=== PATIENT | male | born 1965 | race Caucasian/White ===

== ENCOUNTER 2018-02-19 15:57 | Emergency (ER) | payer SELFPAY ==
[~2018-02-19 15:57] MED LIST: ASPI81TA15 PO; CEPH500T7 PO; PHEN200T32 PO; SULF-198 PO
--- NOTE | 2018-02-19 16:08 | ER Report ---
History and Physical Time Seen By MD: 16:08 HPI/ROS CHIEF COMPLAINT: Abdominal pain HISTORY OF PRESENT ILLNESS: 52-year-old male patient presents to emergency room with complaint of abdominal pain. Patient states he's been having abdominal pain intermittently for the last several days. He states that it worsened significantly today at 9:30. Patient states he was at work and felt like his hernia started to have bowel slipped through the. He states that when that happened he had pain across the left side of the abdomen. He states he did have a bout of nausea and vomiting. He states that he was unable to continue work and left to go home. He states he got home he tried to drink some more issues which resulted in him vomiting again. Patient states that he tried taking a bath at that time was able to reduce his hernia. Patient states he feels as if it pulled something along the left side of the abdomen and came into to get that evaluat ed. Patient states this pain is fairly significant. He states he has not had anything to eat or drink since he vomited about 10:30. REVIEW OF SYSTEMS: Respiratory: No cough, no dyspnea. Cardiovascular: No chest pain, no palpitations. Gastrointestinal: As noted above Musculoskeletal: No back pain. Allergies: Coded Allergies: famotidine (Verified Allergy, Severe, psychosis, 02/19/18) alprazolam (Verified Allergy, Unknown, "Seizures", 02/19/18) morphine (Verified Allergy, Unknown, "Migraines, seizures", 02/19/18) Home Meds Active Scripts Ketorolac Tromethamine (KETOROLAC TROMETHAMINE) 10 Mg Tab, 10 MG PO Q6H, #20 TAB Prov:MODESTA BUCHANAN [facility] 02/19/18 Hydromorphone Hcl (DILAUDID) 2 Mg Tablet, 2 MG PO Q4-6H PRN for PAIN, #8 TAB Prov:MODESTA BUCHANAN [facility] 02/19/18 Cephalexin 500 Mg Tab (KEFLEX 500 MG TAB) 500 Mg Tablet, 500 MG PO Q6H, #28 TAB Prov:MODESTA BUCHANAN [facility] 02/19/18 Past Medical/Surgical History Patient has a past medical history of kidney stones, A5 chambered heart, hypertension, reflux, fibromyalgia. Patient has surgical history of right knee surgery, repair of a testicular torsion. Patient has a family medical history of cancer, stroke. Reviewed Nurses Notes: Yes Hx Smoking: No Smoking Status: Never Smoker Exposure to Second Hand Smoke?: No Constitutional Vital Sign - Last 24 Hours 02/19/18 02/19/18 02/19/18 02/19/18 16:06 16:09 16:30 17:30 Temp 98.2 Pulse 117 99 87 Resp 16 B/P (MAP) 145/91 145/91 (109) 122/96 (105) 124/95 (105) Pulse Ox 93 94 93 O2 Delivery Room Air Physical Exam General Appearance: The patient is alert, has no immediate need for airway protection and no current signs of toxicity. Respiratory: Chest is non tender, lungs are clear to auscultation. Cardiac: regular rate and rhythm Gastrointestinal: Abdomen is soft and tender along the left side of the abdomen, especially worse on the left side just under the ribs., no masses, bowel sounds normal. Musculoskeletal: Neck: Neck is supple and non tender. Extremities have full range of motion and are non tender. Skin: No rashes or lesions. DIFFERENTIAL DIAGNOSIS: After history and physical exam differential diagnosis was considered for abdominal pain including but not limited to appendicitis, cholecystitis, gastritis and urinary tract infection. Included differential is a incarcerated hernia. Medical Decision Making Data Points Result Diagram: 02/19/18 1612 02/19/18 1612 Laboratory Hematology Test 02/19/18 16:12 02/19/18 17:58 Red Blood Count 5.67 M/uL (4.00-5.60) Mean Corpuscular Volume 89.4 fL (80.0-96.0) Mean Corpuscular Hemoglobin 31.5 pg (26.0-33.0) Mean Corpuscular Hemoglobin Concent 35.3 g/dL (32.0-36.0) Red Cell Distribution Width 12.4 % (11.5-14.5) Mean Platelet Volume 8.6 fL (7.2-11.1) Neutrophils (%) (Auto) 79.2 % (39.4-72.5) Lymphocytes (%) (Auto) 13.7 % (17.6-49.6) Monocytes (%) (Auto) 6.7 % (4.1-12.4) Eosinophils (%) (Auto) 0.1 % (0.4-6.7) Basophils (%) (Auto) 0.3 % (0.3-1.4) Nucleated RBC Relative Count (auto) 0.1 /100WBC Neutrophils # (Auto) 11.4 K/uL (2.0-7.4) Lymphocytes # (Auto) 2.0 K/uL (1.3-3.6) Monocytes # (Auto) 1.0 K/uL (0.3-1.0) Eosinophils # (Auto) 0.0 K/uL (0.0-0.5) Basophils # (Auto) 0.0 K/uL (0.0-0.1) Nucleated RBC Absolute Count (auto) 0.01 K/uL Sodium Level 135 mmol/L (137-145) Potassium Level 4.2 mmol/L (3.5-5.0) Chloride Level 100 mmol/L (98-107) Carbon Dioxide Level 22 mmol/L (22-30) Blood Urea Nitrogen 19 mg/dl (9-21) Creatinine 1.50 mg/dl (0.66-1.25) Glomerular Filtration Rate Calc 49.5 Random Glucose 136 mg/dl (75-110) Calcium Level 9.8 mg/dl (8.4-10.2) Total Bilirubin 0.7 mg/dl (0.2-1.3) Aspartate Amino Transf (AST/SGOT) 22 U/L (0-35) Alanine Aminotransferase (ALT/SGPT) 31 U/L (0-56) Alkaline Phosphatase 76 U/L (0-126) Total Protein 7.7 g/dl (6.3-8.2) Albumin 4.6 g/dl (3.5-5.0) Urine Color Yellow Urine Clarity Clear Urine pH 5.0 pH (4.8-9.5) Urine Specific Clune 1.056 Urine Protein Negative mg/dL (NEGATIVE) Urine Glucose (UA) Negative mg/dL (NEGATIVE) Urine Ketones Negative mg/dL (NEGATIVE) Urine Blood Moderate (NEGATIVE) Urine Nitrite Negative (NEGATIVE) Urine Bilirubin Negative (NEGATIVE) Urine Urobilinogen Negative mg/dL (0.2-1.9) Urine Leukocyte Esterase Negative (NEGATIVE) Urine RBC 27 /HPF (0-2/HPF) Urine WBC 1 /HPF (0-5/HPF) Urine Squamous Epithelial Cells Many /LPF (</=FEW) Urine Bacteria Negative /HPF (NONE-FEW) Urine Mucus None /HPF (NONE-FEW) Chemistry Test 02/19/18 16:12 02/19/18 17:58 White Blood Count 14.4 k/uL (4.5-11.0) Red Blood Count 5.67 M/uL (4.00-5.60) Hemoglobin 17.9 g/dL (14.0-18.0) Hematocrit 50.7 % (42.0-52.0) Mean Corpuscular Volume 89.4 fL (80.0-96.0) Mean Corpuscular Hemoglobin 31.5 pg (26.0-33.0) Mean Corpuscular Hemoglobin Concent 35.3 g/dL (32.0-36.0) Red Cell Distribution Width 12.4 % (11.5-14.5) Platelet Count 232 K/uL (150-450) Mean Platelet Volume 8.6 fL (7.2-11.1) Neutrophils (%) (Auto) 79.2 % (39.4-72.5) Lymphocytes (%) (Auto) 13.7 % (17.6-49.6) Monocytes (%) (Auto) 6.7 % (4.1-12.4) Eosinophils (%) (Auto) 0.1 % (0.4-6.7) Basophils (%) (Auto) 0.3 % (0.3-1.4) Nucleated RBC Relative Count (auto) 0.1 /100WBC Neutrophils # (Auto) 11.4 K/uL (2.0-7.4) Lymphocytes # (Auto) 2.0 K/uL (1.3-3.6) Monocytes # (Auto) 1.0 K/uL (0.3-1.0) Eosinophils # (Auto) 0.0 K/uL (0.0-0.5) Basophils # (Auto) 0.0 K/uL (0.0-0.1) Nucleated RBC Absolute Count (auto) 0.01 K/uL Glomerular Filtration Rate Calc 49.5 Calcium Level 9.8 mg/dl (8.4-10.2) Total Bilirubin 0.7 mg/dl (0.2-1.3) Aspartate Amino Transf (AST/SGOT) 22 U/L (0-35) Alanine Aminotransferase (ALT/SGPT) 31 U/L (0-56) Alkaline Phosphatase 76 U/L (0-126) Total Protein 7.7 g/dl (6.3-8.2) Albumin 4.6 g/dl (3.5-5.0) Urine Color Yellow Urine Clarity Clear Urine pH 5.0 pH (4.8-9.5) Urine Specific Clune 1.056 Urine Protein Negative mg/dL (NEGATIVE) Urine Glucose (UA) Negative mg/dL (NEGATIVE) Urine Ketones Negative mg/dL (NEGATIVE) Urine Blood Moderate (NEGATIVE) Urine Nitrite Negative (NEGATIVE) Urine Bilirubin Negative (NEGATIVE) Urine Urobilinogen Negative mg/dL (0.2-1.9) Urine Leukocyte Esterase Negative (NEGATIVE) Urine RBC 27 /HPF (0-2/HPF) Urine WBC 1 /HPF (0-5/HPF) Urine Squamous Epithelial Cells Many /LPF (</=FEW) Urine Bacteria Negative /HPF (NONE-FEW) Urine Mucus None /HPF (NONE-FEW) Urinalysis Test 02/19/18 17:58 Urine Color Yellow Urine Clarity Clear Urine pH 5.0 pH (4.8-9.5) Urine Specific Clune 1.056 Urine Protein Negative mg/dL (NEGATIVE) Urine Glucose (UA) Negative mg/dL (NEGATIVE) Urine Ketones Negative mg/dL (NEGATIVE) Urine Blood Moderate (NEGATIVE) Urine Nitrite Negative (NEGATIVE) Urine Bilirubin Negative (NEGATIVE) Urine Urobilinogen Negative mg/dL (0.2-1.9) Urine Leukocyte Esterase Negative (NEGATIVE) Urine RBC 27 /HPF (0-2/HPF) Urine WBC 1 /HPF (0-5/HPF) Urine Squamous Epithelial Cells Many /LPF (</=FEW) Urine Bacteria Negative /HPF (NONE-FEW) Urine Mucus None /HPF (NONE-FEW) EKG/Imaging Imaging ABDOMEN/PELVIS WITH CONTRAST HISTORY: abdominal pain, hernia TECHNIQUE: Following administration of IV contrast contiguous axial images acquired through the abdomen/pelvis. Coronal and sagittal reformatting also performed. Dose Lowering Technique One of the following dose optimization techniques was utilized in the performance of this exam: Automated exposure control; adjustment of the mA and/or kV according to the patient's size; or use of an iterative reconstruct ion technique. Specific details can be referenced in the facility's radiology CT exam operational policy. CONTRAST: 75 mL Isovue-370 COMPARISON: None. FINDINGS: Visualized lung bases: Negative. Hepatobiliary: Negative. Spleen: Negative. Adrenals: Negative. Pancreas: Negative. Kidneys ureters or bladder: Several tiny subcentimeter hypodensities in the right kidney may represent cysts although are too small to characterize There is moderate perinephric stranding on the left and a moderate to severe left hydronephrosis and hydroureter secondary to a 6 x 4 mm stone in the mid left ureter. There is also a diminished nephrogram on the left consistent with partial obstruction. There Is mild urothelial enhancement involving the proximal left ureter which may indicate urinary tract infection. No other calculi are identified in the renal collecting systems bilaterally. Genitalia: Prostate gland is mildly heterogeneous and contains coarse calcifications GI: There is mild diverticulosis of the left-sided colon although no CT evidence of acute diverticulitis. The appendix is visualized does not appear inflamed Vessels/spaces/nodes: Negative. Bones/soft tissues: There is a small umbilical hernia containing fat. There are moderate spondylotic changes L5-S1 Additional findings: None pertinent. IMPRESSION: There is moderate perinephric stranding on the left with a moderate to severe left hydronephrosis and hydroureter secondary to a 6 x 4 mm stone in the mid left ureter. There is also mild urothelial enhancement involving the proximal left ureter which may indicate a urinary tract infection as well. Additional chronic or nonemergent findings as described Report Dictated By: Lindsay Burgos MD at 02/19/2018 5:12 PM Report E-Signed By: Lindsay Burgos MD at 02/19/2018 5:21 PM ED Course/Re-evaluation ED Course Patient was admitted to the exam room, history and physical were obtained. Di fferential diagnoses were considered. On examination lungs are clear, heart is regular, abdomen is soft and tender especially on the left upper and lower quadrants. Patient seemed to have pain that was worse at the left upper quadrant just under the ribs. A CBC, CMP were done. Patient did have a white count of 14,000 with a left shift, patient had an elevated creatinine to 1.5. His last creatinine was in 2011 and I'm unsure if this is new (development of a chronic illness. A CT scan of the abdomen and pelvis was done. The results showed patient does have a 6 mm x 4 mm stone in the left mid ureter. I discussed the findings with the patient and his . I did discuss the case with Dr. Cruz, urologist. He felt the patient should probably follow-up with him to have a lithotripsy. He stated that could be done on . Dr. Cruz requested that I give the patient his cell phone number. I discussed this with patient and he verbalized understanding and agreement. We will go ahead and treat him with some pain medication, some antibiotics. Patient did receive 1 g of Rocephin IV here in the emergency room. Patient and his verbalized understanding and agreement. Patient also received morphine for pain as well as Toradol. Patient seemed to have more comfort as result of the Toradol. Prescription was sent in for Toradol, however the patient stated when he got there the only one he wanted to warp picker the pain medication and not the antibiotic nor the anti-inflammatory. I felt the patient should probably warp picker all 3, however most important were the antibiotics with pain medication being secondary. Pharmacist verbalized understanding and agreement. Decision to Disposition Date: Feb 19, 2018 Decision to Disposition Time: 19:22 Depart Departure Latest Vital Signs Vital Signs Date Time Temp Pulse Resp B/P (MAP) Pulse Ox O2 Delivery O2 Flow Rate FiO2 02/19/18 17:30 87 124/95 (105) 93 02/19/18 16:06 98.2 16 Room Air Impression: Primary Impression: Kidney stone on left side Condition: Improved Disposition: HOME OR SELF-CARE Referrals: FERNANDO CRUZ MD New Scripts Ketorolac Tromethamine (KETOROLAC TROMETHAMINE) 10 Mg Tab 10 MG PO Q6H, #20 TAB Prov: MODESTA BUCHANAN 02/19/18 Hydromorphone Hcl (DILAUDID) 2 Mg Tablet 2 MG PO Q4-6H PRN for PAIN, #8 TAB Prov: MODESTA BUCHANAN 02/19/18 Cephalexin 500 Mg Tab (KEFLEX 500 MG TAB) 500 Mg Tablet 500 MG PO Q6H, #28 TAB Prov: MODESTA BUCHANAN 02/19/18 Patient Instructions: Kidney Stones (ED) Additional Instructions: Increase fluid intake. Get plenty of rest. Limit activity by pain. Follow up with Dr. Cruz on to break up the stone. He will call you tomorrow to make arrangements for the lithotripsy. His Cell phone number is: . Take your medications as prescribed. MODESTA BUCHANAN Feb 19, 2018 16:08
[2018-02-19] MEDS ORDERED: NS(*) 0.9% 1000 ML BAG 1,000 ML IV ONE (16:27)
[2018-02-19] MEDS ORDERED: ONDANSETRON 4 MG/2 ML VIAL IVP ONE (16:30)
[2018-02-19] MEDS ORDERED: fentaNYL CITR 100 MCG/2 ML AMP IVP ONE (16:30)
[2018-02-19 16:33] LABS: PLATELET COUNT, AUTOMATED 232 K/uL (150-450)
[2018-02-19] MEDS ORDERED: IOPAMIDOL 76% 75 ML INFUS BTL 75 ML ONE (16:44)
--- NOTE | 2018-02-19 17:25 | RADIOLOGY IMAGING REPORT ---
FACILITY: [facility] PATIENT NAME: Tunde Alvarez : 1965 MR: [id number] V: [id number] EXAM DATE: ORDERING PHYSICIAN: MODESTA BUCHANAN TECHNOLOGIST: Location: [facility] Patient: Tunde Alvarez : 1965 Visit/Account:[id number] Date of Sevice: 02/19/2018 ABDOMEN/PELVIS WITH CONTRAST HISTORY: abdominal pain, hernia TECHNIQUE: Following administration of IV contrast contiguous axial images acquired through the abdom en/pelvis. Coronal and sagittal reformatting also performed. Dose Lowering Technique One of the following dose optimization techniques was utilized in the performance of this exam: Autom ated exposure control; adjustment of the mA and/or kV according to the patient's size; or use of an i terative reconstruction technique. Specific details can be referenced in the facility's radiology C T exam operational policy. CONTRAST: 75 mL Isovue-370 COMPARISON: None. FINDINGS: Visualized lung bases: Negative. Hepatobiliary: Negative. Spleen: Negative. Adrenals: Negative. Pancreas: Negative. Kidneys ureters or bladder: Several tiny subcentimeter hypodensities in the right kidney may represen t cysts although are too small to characterize There is moderate perinephric stranding on the left and a moderate to severe left hydronephrosis and hydroureter secondary to a 6 x 4 mm stone in the mid left ureter. There is also a diminished nephrog mary on the left consistent with partial obstruction. There Is mild urothelial enhancement involving the proximal left ureter which may indicate urinary tract infection. No other calculi are identified in the renal collecting systems bilaterally. Genitalia: Prostate gland is mildly heterogeneous and contains coarse calcifications GI: There is mild diverticulosis of the left-sided colon although no CT evidence of acute diverticul itis. The appendix is visualized does not appear inflamed Vessels/spaces/nodes: Negative. Bones/soft tissues: There is a small umbilical hernia containing fat. There are moderate spondyloti c changes L5-S1 Additional findings: None pertinent. IMPRESSION: There is moderate perinephric stranding on the left with a moderate to severe left hydronephrosis and hydroureter secondary to a 6 x 4 mm stone in the mid left ureter. There is also mild urothelial enh ancement involving the proximal left ureter which may indicate a urinary tract infection as well. Additional chronic or nonemergent findings as described Report Dictated By: Lindsay Burgos MD at 02/19/2018 5:12 PM Report E-Signed By: Lindsay Burgos MD at 02/19/2018 5:21 PM JULISSAN:ZAKI
[2018-02-19 17:30] VITALS: BP 124/95
[2018-02-19] MEDS ORDERED: KETOROLAC 15 MG/ML VIAL IVP ONE (17:45)
[2018-02-19] MEDS ORDERED: cefTRIAXone(*) 1 GM VIAL 1 GM in NS(*) 0.9% 100 ML ADDVANT BAG 100 ML IVPB ONE (18:40)
[2018-02-19] MEDS ORDERED: KET10 PO (19:13)
[2018-02-19] MEDS ORDERED: CEPH500T7 PO (19:13)
[2018-02-19] MEDS ORDERED: HYDR2TAB74 PO (19:13)
== END 2018-02-19 20:12 | disposition home or self-care (01) ==
LOC: ER 16:10
DX: N20.0 Calculus of kidney (principal); N13.30 Unspecified hydronephrosis; N13.4 Hydroureter
CPT/HCPCS: 81001; 85025; 96361; 96365; 96375; 99284; J0696; J1885; J2405; J3010; J7030; J7050; Q9967; 74177; 82040; 82247; 82310; 82374; 82435; 82565; 82947; 84075; 84132; 84155; 84295; 84450; 84460; 84520

== ENCOUNTER 2018-02-21 00:18 | Day surgery (SDC) | payer SELFPAY ==
[~2018-02-21] VITALS: Ht 157.5 cm; Wt 62.6 kg
[~2018-02-21 00:18] MED LIST changes: +HYDR2TAB74 PO; +KET10 PO
[2018-02-21] MEDS ORDERED: cefTRIAXone(*) 1 GM VIAL 1 GM in NS(*) 0.9% 100 ML ADDVANT BAG 100 ML IVPB ONE (11:15)
[2018-02-21 11:42] VITALS: BP 149/104
[2018-02-21] MEDS ORDERED: LIDOCAINE/SOD BICARB 8.4% SYR ID ONE (11:45)
[2018-02-21] MEDS ORDERED: NORMOSOL R SOLN(*) 1000 ML BAG 1,000 ML IV PRN (11:45)
[2018-02-21] MEDS ORDERED: PROPOFOL EMUL(*) 10MG/ML 20 ML 20 ML ONE (12:25)
[2018-02-21] MEDS ORDERED: ONDANSETRON 4 MG/2 ML VIAL ONE ×2 (12:25→15:58)
[2018-02-21] MEDS ORDERED: fentaNYL CITR 100 MCG/2 ML AMP ONE ×2 (12:25→16:04)
[2018-02-21] MEDS ORDERED: LIDOCAINE MPF 1% 5 ML VIAL ONE (12:25)
[2018-02-21] MEDS ORDERED: DEXAMETHASONE SOD 4 MG/ML VIAL ONE (12:25)
[2018-02-21] MEDS ORDERED: KETAMINE HCL 200 MG/20 ML MDV ONE (12:27)
[2018-02-21] MEDS ORDERED: IOPAMIDOL-200 50 ML VIAL IS ONE (13:33)
[2018-02-21] MEDS ORDERED: MIDAZOLAM 2 MG/2 ML VIAL IVP PRN (13:45)
--- NOTE | 2018-02-21 14:00 | RADIOLOGY IMAGING REPORT ---
FACILITY: [facility] PATIENT NAME: Tunde Alvarez : 1965 MR: [id number] V: [id number] EXAM DATE: ORDERING PHYSICIAN: FERNANDO CRUZ TECHNOLOGIST: Location: [facility] Patient: Tunde Alvarez : 1965 Visit/Account:[id number] Date of Sevice: 02/21/2018 Exam type: KUB SINGLE VIEW ABDOMEN History: KIDNEY STONES Comparison: CT abdomen and pelvis February 19, 2018. Findings: Bowel gas pattern is nonspecific. Ovoid calcification projects over the left transverse processes of L4 likely representing the mid left ureteral calculus as seen on the recent CT scan. No other calcu li project over the renal shadows. IMPRESSION: 1. Ovoid calcification projects of the left transverse process of L4 likely representing the mid lef t ureteral calculus as seen on the recent CT Report Dictated By: Lindsay Burgos MD at 02/21/2018 1:55 PM Report E-Signed By: Lindsay Burgos MD at 02/21/2018 1:57 PM JULISSAN:ZAKI
[2018-02-21] MEDS ORDERED: LIDOCAINE MPF 4% 200MG/5ML AMP ONE (14:13)
--- NOTE | 2018-02-21 15:43 | RADIOLOGY IMAGING REPORT ---
FACILITY: [facility] PATIENT NAME: Tunde Alvarez : 1965 MR: [id number] V: [id number] EXAM DATE: ORDERING PHYSICIAN: FERNANDO CRUZ TECHNOLOGIST: Location: [facility] [place] Patient: Tunde Alvarez : 1965 Visit/Account:[id number] Date of Sevice: 02/21/2018 Exam type: C-ARM FLUORO 1 HR History: LEFT KIDNEY STONES AND STENT PLACEMENT Comparison: CT and pelvis February 19, 2018. Findings: Four intraoperative some spot views over the abdomen pelvis were submitted. The prostate be time was 0.04 minutes. The fluoroscopy dose was 2.2 mgray. 4. Images demonstrate placement of a left ureteral stent which appears to been good position on the provided images. Cystoscope projects over the bladder IMPRESSION: 1. As above Report Dictated By: Lindsya uBrgos MD at 02/21/2018 3:37 PM Report E-Signed By: Lindsay Burgos MD at 02/21/2018 3:39 PM WSN:[id number]
[2018-02-21] MEDS ORDERED: PROMETHAZINE 25 MG/ML 1 ML AMP ONE ×2 (16:38→16:43)
[2018-02-21] MEDS ORDERED: CEPH500T7 PO (17:44)
[2018-02-21 17:45] VITALS: BP 117/79
[2018-02-21] MEDS ORDERED: PHEN200T32 PO (17:45)
[2018-02-21] MEDS ORDERED: IBUP600T22 PO (17:48)
[2018-02-21] MEDS ORDERED: HYDR-389 PO (17:49)
[2018-02-21 17:58] VITALS: BP 132/87
[2018-02-21 18:01] VITALS: BP 132/93
--- NOTE | 2018-02-21 19:28 | OPERATIVE REPORT 1 ---
EVENT DATE: February 21, 2018 SURGEON: Adrian Sanchez MD ANESTHESIOLOGIST: Bobby Daniel MD ANESTHESIA: General anesthetic. PREOPERATIVE DIAGNOSIS Left ureterolithiasis with associated left ureterorenal colic, nausea, and vomiting. POSTOPERATIVE DIAGNOSIS Left ureterolithiasis with associated left ureterorenal colic, nausea, and vomiting. PROCEDURES PERFORMED 1. Cystourethroscopy. 2. Manipulation of left ureteral stone. 3. Left ureteral stent. 4. Left extracorporeal shock wave lithotripsy of one stone. DESCRIPTION OF PROCEDURE Under general anesthetic, the patient was prepped and draped in the extended lithotomy position. The 21 panendoscope was admitted through the urethra into the bladder. Urethra was normal. Prostate showed trilobar hyperplasia with obstruction. Bladder showed 3+ trabeculation. Trigone and ureteral orifices were normal. No inflammation about either orifice. The 10 cone tip catheter passed up the left ureter without any difficulty to the stone in the left mid ureter. Attempt to dislodge was unsuccessful. Lidocaine 4% jelly was introduced up the left ureter, and still I was unable to dislodge the stone using that technique in addition to the cone tip catheter. The access catheter was placed and slipped by the stone without any difficulty. Guidewire was placed and then the 6-Syriac x 26 cm Percuflex Plus. The stone appeared to be in the mid upper ureter. Patient was transferred to the stone treatment unit. After localization and confirming the stone, the stone was treated with a total of 3000 shocks, progressing from low to high kV fairly slowly. The stone appeared to satisfactorily disintegrate. The procedure was discontinued. Patient returned to recovery room in satisfactory condition. This is a 52-year-old white male complaining of acute left ureterorenal colic. This was confirmed on CT IVP. Followup KUB preoperatively confirmed the stone to still be in approximately the same vicinity as found on CT. Options were discussed with the patient. He was agreeable to further evaluation and therapy. Patient has been evaluated. See operative note for details. Patient will be ready for discharge home when alert and functional. He is to force fluids, 12 glasses of water per day. Activities are as tolerated. Plan followup in the office on the February. He is to call for an appointment. He is to continue his usual medications. A copy of instructions were given to the patient. Patient will be discharged home on Keflex, Pepcid, Pyridium, Motrin, and Diana therapy. MTDD
== END 2018-02-21 17:45 | disposition home or self-care (01) ==
LOC: OR 00:18
DX: N20.2 Calculus of kidney with calculus of ureter (principal)
CPT/HCPCS: 50590; 74018; 76000; A4338; C1769; C1894; J0696; J1100; J2001; J2250; J2405; J2550; J2704; J3010; J3490; J7050; Q9966

== ENCOUNTER 2018-03-04 00:34 | Day surgery (SDC) | payer SELFPAY ==
[2018-03-04] VITALS (8 sets, daily range): BP systolic 106–124; BP diastolic 84–94
[~2018-03-04] VITALS: Ht 157.5 cm; Wt 60.3 kg
[~2018-03-04 00:34] MED LIST changes: +HYDR-389 PO; +IBUP600T22 PO
[2018-03-04] MEDS ORDERED: NORMOSOL R SOLN(*) 1000 ML BAG 1,000 ML IV PRN (06:30)
[2018-03-04] MEDS ORDERED: MIDAZOLAM 2 MG/2 ML VIAL IVP PRN (06:30)
[2018-03-04] MEDS ORDERED: ceFAZolin(*) 1 GM VIAL 1 GM in NS(*) 0.9% 100 ML ADDVANT BAG 100 ML IVPB ONE (06:30)
[2018-03-04] MEDS ORDERED: LIDOCAINE/SOD BICARB 8.4% SYR ID ONE (06:30)
[2018-03-04] MEDS ORDERED: IOPAMIDOL-200 50 ML VIAL IS ONE (06:47)
[2018-03-04] MEDS ORDERED: ONDANSETRON 4 MG/2 ML VIAL ONE (07:15)
[2018-03-04] MEDS ORDERED: fentaNYL CITR 100 MCG/2 ML AMP ONE (07:15)
[2018-03-04] MEDS ORDERED: DEXAMETHASONE SOD PHOS 10MG/ML ONE (07:15)
[2018-03-04] MEDS ORDERED: LIDOCAINE MPF 1% 5 ML VIAL ONE (07:15)
[2018-03-04] MEDS ORDERED: PROPOFOL EMUL(*) 10MG/ML 20 ML 20 ML ONE ×2 (07:15)
[2018-03-04] MEDS ORDERED: KETAMINE HCL-NS 50 MG/5 ML SYR ONE (07:15)
[2018-03-04] MEDS ORDERED: KETOROLAC 30 MG/ML VIAL ONE (08:46)
[2018-03-04] MEDS ORDERED: CIPR-344 PO (08:50)
[2018-03-04] MEDS ORDERED: HYDR-385 PO (08:51)
[2018-03-04] MEDS ORDERED: FAMO20TA28 PO (08:51)
[2018-03-04] MEDS ORDERED: APAP/HYDROCODONE 325/5 TAB PO ONE (09:50)
[2018-03-04] MEDS ORDERED: HYDROmorphone HCL 2 MG TAB PO ONE (10:25)
--- NOTE | 2018-03-04 13:33 | FLOCK CYSTOURETHROSCOPY ---
EVENT DATE: February 28, 2018 SURGEON: Mehnaz Sanchez MD ANESTHESIOLOGIST: Joaquín Fleming MD ANESTHESIA: General. [employer]: Staff PREOPERATIVE DIAGNOSES 1. Left ureterolithiasis. 2. Status postop left ureteral stent placement. 3. Status postop left extracorporeal shock wave lithotripsy. POSTOPERATIVE DIAGNOSES 1. Left ureterolithiasis. 2. Status postop left ureteral stent placement. 3. Status postop left extracorporeal shock wave lithotripsy. PROCEDURES PERFORMED 1. Cystourethroscopy. 2. Left ureteral stent removal. 3. Left ureteral-renoscopy. DESCRIPTION OF PROCEDURE Under general anesthetic, the patient was prepped and draped in the extended lithotomy position. The 21-Panendoscope was admitted through the urethra and into the bladder. The urethra was normal. The prostate showed trilobular hyperplasia with obstruction, moderate median lobe. The bladder showed 3-4+ trabeculation. The trigone and ureteral orifices were normal. Left ureteral stent was emanating from the left ureteral orifice. There was some mild inflammation about the left ureteral orifice but minimal compared to most people with indwelling stents. The left ureteral stent was removed. No stones were visible prior to the stent removal and after the stent removal. The semi-rigid ureteroscope was passed through the urethra into the bladder and up the left collecting system. Ascending and descending and inspecting the kidney, no stones were visualized. The bladder was drained. Scope was removed. The patient tolerated the procedure satisfactorily and returned to the recovery room in satisfactory condition. This is a 53-year-old white male complaining of left ureterolithiasis approximately two weeks ago. He had subsequent stent placement and shockwave lithotripsy. The stones appear to be satisfactorily treated and resolved. The patient will be ready for discharge home when alert and functional. He is to force fluids with 12 glasses of water per day. Activities are as tolerated. He is to continue his usual medication. A copy of instructions were given to the patient. We will plan follow up March 26, 2018. He is to call for an appointment. He will be discharged on Cipro, Pepcid and [place] therapy. [facility]
== END 2018-03-04 09:20 | disposition home or self-care (01) ==
LOC: OR 00:34
DX: N20.1 Calculus of ureter (principal)
CPT/HCPCS: 52351; J0690; J1100; J1885; J2001; J2405; J2704; J3010; J3490; J7050; Q9966